=== PATIENT | female | born 1970 | race Caucasian/White ===

== ENCOUNTER 2017-10-18 19:17 | Emergency (ER) | payer OTHER ==
[2017-10-18] MEDS: HYDROCODONE/APAP (5/325) TAB PO (22:26)
[2017-10-18] MEDS: IBUPROFEN 600 MG TAB PO (22:26)
[2017-10-18] MEDS: DIAZEPAM 5 MG/ML SYG IM (22:31)
== END 2017-10-18 23:36 | disposition home or self-care (01) ==
LOC: FTE 19:17
DX: S16.1XXA Strain of muscle, fascia and tendon at neck level, initial encounter (principal); J45.909 Unspecified asthma, uncomplicated; E11.9 Type 2 diabetes mellitus without complications; X58.XXXA Exposure to other specified factors, initial encounter; Y92.9 Unspecified place or not applicable
CPT/HCPCS: 96372; 99284-25

== ENCOUNTER 2018-07-22 18:56 | Emergency (ER) | payer OTHER ==
[2018-07-22] MEDS: HYDROCODONE/APAP (10/325) TAB PO (20:49)
[2018-07-22] MEDS: KETOROLAC 30 MG INJ IM (20:50)
== END 2018-07-22 21:21 | disposition home or self-care (01) ==
LOC: FTE 21:21
DX: K04.7 Periapical abscess without sinus (principal); K08.9 Disorder of teeth and supporting structures, unspecified; J45.909 Unspecified asthma, uncomplicated; E11.9 Type 2 diabetes mellitus without complications
CPT/HCPCS: 96372; 99284-25